=== PATIENT | male | born 1940 | race Caucasian/White ===

== ENCOUNTER → 2017-11-16 | Outpatient (CLI) | payer OTHER, MEDICARE | LOC: RAD 09:39 | DX: R06.00 Dyspnea, unspecified (principal); I70.0 Atherosclerosis of aorta ==

== ENCOUNTER → 2019-11-10 | Outpatient (CLI) | payer OTHER, MEDICARE | LOC: SJCVCIMAG 08:10 | DX: I08.0 Rheumatic disorders of both mitral and aortic valves (principal) ==

== ENCOUNTER 2020-09-29 14:57 | Inpatient (IN) | payer OTHER, MEDICARE ==
[~2020-09-29] VITALS: Ht 182.9 cm; Wt 123.4 kg
[2020-09-29 15:03] VITALS: BP 122/72
--- NOTE | 2020-09-29 15:17 | NUR ---
code stroke paged
--- NOTE | 2020-09-29 15:27 | NUR ---
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 PT NIHSS-0. REPORTS 12:30 TODAY LOST USE OF RIGHT ARM AND LEG RESULTING IN FALL. ABRASIONS NOTED TO HEAD. REPORTS LAID ON GROUND APPROXIMATELY 10 MINUTES UNTIL "FEELING / USE" OF RIGHT SIDE RETURNED.
[2020-09-29 15:41] LABS: ANION GAP 10 mmol/L (7-16); BUN 21 mg/dL (7-18); CALCIUM 8.6 mg/dL (8.5-10.1); CHLORIDE 101 mmol/L (98-107); CO2 23 mmol/L (21-32); CREATININE 1.1 mg/dL (0.7-1.3); GLUCOSE 132 mg/dL (74-106); POTASSIUM 5.5 mmol/L (3.5-5.1); SODIUM 134 mmol/L (136-145)
[2020-09-29 15:50] LABS: ALBUMIN 3.9 g/dL (3.4-5.0); SGOT 37 U/L (15-37); SGPT 29 U/L (16-63); TOTAL PROTEIN 7.8 g/dL (6.4-8.2); TROPONIN-I <0.06 ng/mL (<0.06)
[2020-09-29 15:58] LABS: ABSOLUTE NEUTROPHILS 13.4 thou/uL (1.4-8.2); BASOPHILS 0.2 % (0.0-2.0); EOSINOPHILS 0.1 % (0.0-3.0); HEMATOCRIT 46.8 % (42.0-52.0); HEMOGLOBIN 15.8 gm/dL (14.0-18.0); MCH 30.9 pg (26.0-34.0); MCHC 33.7 g/dL (28.0-37.0); MCV 91.6 fL (80.0-100.0); MONOCYTES 2.7 % (1.0-8.0); PLATELET COUNT 272 thou/uL (150-400); RBC 5.11 mil/uL (4.50-6.00); RDW 13.1 % (10.5-14.5); WBC 14.4 thou/uL (4.0-11.0)
[2020-09-29 16:13] LABS: APTT 25.6 Seconds (24.5-32.8); INR 0.9; PROTIME 9.9 Seconds (9.3-11.4)
[2020-09-29 17:20] LABS: URINE BILIRUBIN NEGATIVE (Negative); URINE BLOOD TRACE (Negative); URINE CLARITY CLEAR; URINE COLOR YELLOW; URINE GLUCOSE-RANDOM* NEGATIVE (Negative); URINE KETONES NEGATIVE (Negative); URINE LEUKOCYTES-REFLEX NEGATIVE (Negative); URINE NITRITE-REFLEX NEGATIVE (Negative); URINE PROTEIN (DIPSTICK) NEGATIVE (Negative); URINE SPECIFIC GRAVITY <= 1.005 (1.005-1.035); URINE UROBILINOGEN 0.2 E.U./dl (0.2-1.0)
--- NOTE | 2020-09-29 17:39 | EKG ---
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 : 1940 Requested By: Joseph Diaz Order Number: [id number] MD: Delonte Brown Measurements Intervals [place] Rate: 95 P: -33 DE: 199 QRS: -66 QRSD: 106 T: 69 QT: 350 QTc: 440 Interpretive Statements Sinus rhythm Probable left atrial enlargement Left anterior fascicular block Abnormal R-wave progression, late transition Compared to ECG 07/25/2006 11:48:13 Intraventricular conduction delay is now present Early R wave progression is no longer present Electronically Signed On 09-29-2020 17:38:43 CDT by Delonte Brown [email or web address] <ELECTRONICALLY SIGNED> By: Delonte Brown MD, [facility] 09/29/20 1738 1546 1546 Delonte Brown MD, [facility] /EPI
[2020-09-29 18:19] VITALS: BP 129/72
[2020-09-29 19:35] VITALS: BP 106/61
[2020-09-29] MEDS ORDERED: LISINOPRIL10 MG PO (20:07)
[2020-09-29] MEDS ORDERED: HYDROCHLOROTH12.5 M2 PO (20:13)
[2020-09-29] MEDS ORDERED: FLONASE 0.05%50 MCG NARES (20:14)
[2020-09-29] MEDS ORDERED: UNICOMPLEX M TA1 TA1 PO (20:15)
[2020-09-29] MEDS ORDERED: COLLAGEN PLUS1 EACH PO (20:16)
[2020-09-29] MEDS ORDERED: LIDOCAINE5 GM TOP (20:18)
[2020-09-30] VITALS (7 sets, daily range): BP systolic 107–155; BP diastolic 54–87
--- NOTE | 2020-09-30 08:07 | NUR ---
ADMIT PT ADMITTED TO ROOM 363 VIA ED FOR STROKE R/O VSS, IV INTACT TELE READING SR CONTINUE POC.
--- NOTE | 2020-09-30 13:39 | NUR ---
INITIAL ASSESSMENT: SW reviewed chart and spoke with nursing and attending physician. Pt was admitted from home due to possible TIA. Code Stroke called in the ER. Neuro consulted. Pt to have MRI today. SW met with pt at bedside. Introduced role of SW. Pt is alert/orientated x 4. Pt reports he lives at home with his . Prior to admission, pt was independent with ADLs. No use of DME. Pt states he has used HH in the past following knee surgery. Pt unsure of HH agency. No hx of post-acute placement. Pt's PCP is Dr. Garcia. PT/OT ordered to evaluate pt for discharge needs. Plan is for pt to discharge home when medically stable. SW is following to assist as needed with discharge planning.
--- NOTE | 2020-09-30 14:38 | 2DMMODE ---
[facility] [place] [address] 2 D/M-MODE ECHOCARDIOGRAM Name: DENISA QUESADA Room #: 363-P ADM IN M.R.#: [id number] Admission: 09/29/20 Attend Phys: Pablo Garcia MD Discharge: Date of : 38 Report #: [id number] THIS REPORT FOR: cc: Pablo Garcia MD, Neal A. MD Santiago, Patrick MD [facility] ~ APPROVED REPORT Study performed: 09/30/2020 13:33:03 EXAM: Comprehensive 2D, Doppler, and color-flow Echocardiogram Patient Location: Bedside Room #: 363 Status: routine BSA: 2.43 HR: 79 bpm Rhythm: Atrial Fibrillation Other Information Study Quality: Adequate Indications CVA/TIA Hx: HTN, COPD. 2D Dimensions RVDd: 31.84 mm IVSd: 9.18 (7-11mm) LVOT Diam: 23.25 (18-24mm) LVDd: 47.13 mm PWd: 9.22 (7-11mm) Ascending Ao: 29.59 (22-36mm) LVDs: 26.07 (25-40mm) Left Atrium: 44.65 (27-40mm) Aortic Root: 34.65 mm Volumes Left Atrial Volume (Systole) Single Plane 4CH: 67.28 mL Single Plane 2CH: 45.21 mL LA ESV Index: 25.00 mL/m2 Aortic Valve AoV Peak Cristino.: 2.09 m/s AO Peak Gr.: 17.40 mmHg LVOT Max P.44 mmHg LVOT Max V: 1.17 m/s [facility] [place] [address] 2 D/M-MODE ECHOCARDIOGRAM Name: DENISA QUESADA Room #: 363-P [facility] IN [facility].#: [id number] Admission: 09/29/20 Attend Phys: Pablo Garcia, Discharge: Date of : 38 Report #: [id number] ARIE Vmax: 2.37 cm2 Mitral Valve E/A Ratio: 1.0 MV Decel. Time: 211.83 ms MV E Max Cristino.: 1.01 m/s MV A Cristino.: 0.99 m/s MV PHT: 61.43 ms IVRT: 72.66 ms Pulmonary Valve PV Peak Cristino.: 0.92 m/s PV Peak Gr.: 3.37 mmHg Pulmonary Vein P Vein S: 0.57 m/s P Vein A: 0.35 m/s P Vein D: 0.38 m/s P Vein A Dur.: 133.8 msec P Vein S/D Ratio: 1.50 Tricuspid Valve TR Peak Cristino.: 2.72 m/s TR Peak Gr.: 29.50 mmHg Left Ventricle The left ventricle is normal size. There is normal LV segmental wall motion. There is normal left ventricular wall thickness. The left ventricular systolic function is normal. LVEF is 55-60%. Grade I - abnormal relaxation pattern. Right Ventricle The right ventricle is normal size. The right ventricular systolic function is normal. Atria Left atrium is mildly dilated. Interatrial septum is intact without evidence of ASD or PFO. The right atrium size is normal. Aortic Valve Aortic valve is calcified. The aortic valve is normal in structure. Trace aortic regurgitation. There is no aortic valvular stenosis. Mitral Valve The mitral valve is normal in structure. Trace mitral regurgitation. No evidence of mitral valve stenosis. Tricuspid Valve [facility] [address] [place] [address] 2 D/M-MODE ECHOCARDIOGRAM Name: DENISA QUESADA Room #: 363-P [facility] IN ..#: [id number] Admission: 09/29/20 Attend Phys: Pablo Garcia, Discharge: Date of : 38 Report #: [id number] The tricuspid valve is normal in structure. Trace to mild tricuspid regurgitation. Pulmonic Valve The pulmonary valve is normal in structure. There is no pulmonic valvular regurgitation. Great Vessels The aortic root is normal in size. IVC is not well visualized. Pericardium There is no pericardial effusion. <Conclusion> Normal left ventricular size/wall thickness Ejection fraction 55% Normal right ventricular size/function Normal atrial size Color-flow Doppler study was performed of the aortic/mitral/tricuspid/pulmonary valve Grade 1 diastolic function Aortic valve mildly sclerotic without stenosis Normal mitral valve structure and function Trace tricuspid valve insufficiency Normal aortic root size No pericardial effusion <ELECTRONICALLY SIGNED> By: Noble Burroughs MD, FACC 09/30/201436 36 36 Noble Burroughs MD, FACC /INF
--- NOTE | 2020-09-30 17:35 | NUR ---
assumed care of pt at 0700. pt aox4 pleasant complains of pain and intermittent nausea/dizziness, usually after ambulating. 2 episodes of bile emesis. poor appetite. mri results pending. drop in bp noted after sitting and standing - orthostatics charted - phys aware. wcm.
[2020-10-01 03:40] VITALS: BP 120/68
[2020-10-01 03:42] VITALS: BP 117/65
[2020-10-01 03:46] VITALS: BP 103/60
--- NOTE | 2020-10-01 05:35 | NUR ---
PROGRESS PT A/O X4 LUNGS CLEAR, ABDOMEN ROUNDED SLIGHTLY DISTENDED WITH HYPO ACTIVE BS. REPORTS NAUSEA AND HAD AN EPISODE OF EMESIS DARK GREEN WATERY FLUID REPORTS RELIEF AFTER VOMITING. REPORTS HEARTBURN AND ORDERED MYLANTA THAT WAS GIVEN WITH EFFECT ALSO ORDERED PROTONIX FIRST DOSE THIS AM. PT STILL C/O PAIN TO LEFT CHEST AND FLANK AND SHOULDER. TAKING TRAMADOL WITH EFFECT. TELE INTACT READING SR. CONTINUE POC.
[2020-10-01] MEDS ORDERED: LIPITOR40 MG PO (05:58)
[2020-10-01] MEDS ORDERED: ASPIRIN325 PO (05:58)
[2020-10-01 07:41] VITALS: BP 205/101
--- NOTE | 2020-10-01 14:34 | NUR ---
DISCHARGE NOTE: SW reviewed chart and spoke with nursing. Pt has discharge orders to go home today. Awaiting results of abdominal CT to r/o SBO. SW met with pt at bedside to discuss discharge plan. Pt states he is hoping to discharge home today. Pt states he has an appetite and ate part of his lunch. Pt will not have any discharge needs. Pt's family will be able to provide transportation home. BARBARA is following to assist as needed with discharge planning.
[2020-10-01 15:16] VITALS: BP 113/66
[2020-10-01 19:30] VITALS: BP 122/64
--- NOTE | 2020-10-01 19:46 | NUR ---
RN ASSUMED PT'S CARE AT 0700AM, PT IS A&OX3, PT'S VS ARE STABLE, RN REPORTED DR ABOUT PT HAD N/V FOR 2 DAYS, NEW ORDER : DAVID XRAY AND ABD CT SCAN SHOW SMALL BOWEL OBSTRUCTION, SO PT'S DISCHARGE ORDER HAS DC, PT IS ON NPO AND IV NS @ 100ML/HR, PT AND PT'S UNDERSTAND NEW CARE PLAN , PT HAS ORDER TO REPORT KUB TOMORROW.
--- NOTE | 2020-10-01 21:31 | NUR ---
PT RESTING IN BED. BED ALARM ON. PT REPORTS RECENT FALL DUE TO ORTHOSTATIC HYPOTENSION. PT HAS SBO AND VERBALIZED UNDERSTANDING OF NPO STATUS. IVF INTACT. NO C/O NAUSEA. BED ALARM ON.
[2020-10-02 03:01] VITALS: BP 126/77
[2020-10-02 07:42] VITALS: BP 102/75
[2020-10-02] MEDS ORDERED: CLOPIDOGREL75 MG PO (11:14)
[2020-10-02 12:08] LABS: HEMATOCRIT 40.2 % (42.0-52.0); MCHC 34.8 g/dL (28.0-37.0); MCV 92.1 fL (80.0-100.0); RBC 4.36 mil/uL (4.50-6.00); RDW 13.1 % (10.5-14.5)
[2020-10-02 12:27] LABS: CALCIUM 7.9 mg/dL (8.5-10.1); POTASSIUM 3.8 mmol/L (3.5-5.1)
[2020-10-02 14:40] VITALS: BP 102/75
--- NOTE | 2020-10-02 17:49 | NUR ---
PT'S LAB RESULTS AND SMALL BOWEL OBSTRUCTION ( X-RAY KUB RESULTS) HAVE IMPROVED, RN REPORTED TO DR , PT DID NOT HAVE N/V , PT HAD ONE TIME BM, PT WAS TOLERATVED CLEAR LIQUID DIET, SO PT WAS DC TO HOME ABOUT 1500PM, PT AND PT'S UNDERSTANDED DC TEACHING WELL.
== END 2020-10-02 15:15 | disposition home or self-care (01) | DRG 312 ==
LOC: ER 14:57 → 3W 19:25
PROVIDERS: Emergency Medicine; ADMIT Family Medicine; ATTEND Family Medicine
DX: I95.1 Orthostatic hypotension (principal); G45.9 Transient cerebral ischemic attack, unspecified; I10 Essential (primary) hypertension; S80.02XA Contusion of left knee, initial encounter; S09.90XA Unspecified injury of head, initial encounter; S50.02XA Contusion of left elbow, initial encounter; S20.212A Contusion of left front wall of thorax, initial encounter; J44.9 Chronic obstructive pulmonary disease, unspecified; E78.5 Hyperlipidemia, unspecified; W18.39XA Other fall on same level, initial encounter; Z90.49 Acquired absence of other specified parts of digestive tract; Z98.49 Cataract extraction status, unspecified eye; Y93.89 Activity, other specified; Y92.89 Other specified places as the place of occurrence of the external cause; Y99.8 Other external cause status; Z23 Encounter for immunization
CPT/HCPCS: 10879

== ENCOUNTER → 2021-04-05 | Outpatient (CLI) | payer OTHER, MEDICARE ==
[~2021-04-05] MED LIST: ASPIRIN325 PO; CLOPIDOGREL75 MG PO; COLLAGEN PLUS1 EACH PO; FLONASE 0.05%50 MCG NARES; HYDROCHLOROTH12.5 M2 PO; LIDOCAINE5 GM TOP; LIPITOR40 MG PO; LISINOPRIL10 MG PO; UNICOMPLEX M TA1 TA1 PO
== END ==
LOC: SJCVC 10:55
PROVIDERS: ATTEND Internal Medicine
DX: R94.31 Abnormal electrocardiogram [ECG] [EKG] (principal); I10 Essential (primary) hypertension; E78.5 Hyperlipidemia, unspecified; J44.9 Chronic obstructive pulmonary disease, unspecified; I35.8 Other nonrheumatic aortic valve disorders; Z86.73 Personal history of transient ischemic attack (TIA), and cerebral infarction without residual deficits; Z87.891 Personal history of nicotine dependence; Z72.89 Other problems related to lifestyle; Z79.899 Other long term (current) drug therapy

== ENCOUNTER → 2021-05-13 | Outpatient (CLI) | payer OTHER, MEDICARE | LOC: SJCVC 13:18 | PROVIDERS: ATTEND Internal Medicine | DX: I10 Essential (primary) hypertension (principal); I35.8 Other nonrheumatic aortic valve disorders; E78.5 Hyperlipidemia, unspecified; J44.9 Chronic obstructive pulmonary disease, unspecified; G45.9 Transient cerebral ischemic attack, unspecified; Z98.890 Other specified postprocedural states; Z79.899 Other long term (current) drug therapy; Z88.8 Allergy status to other drugs, medicaments and biological substances ==